=== PATIENT | male | born 1970 | race Two or more races ===

== ENCOUNTER 2022-09-27 02:00 | Emergency (ER) | payer MEDICAID ==
[~2022-09-27] VITALS: Ht 172.7 cm; Wt 71.3 kg
[2022-09-27] MEDS ORDERED: KETOROLAC TROMETH 60MG/2ML VIAL IM ONE (05:30)
[2022-09-27] MEDS ORDERED: BACLOFEN 10 MG TAB PO ONE (06:45)
[2022-09-27] MEDS ORDERED: DexAMETHasone SOD PHOS 10MG/1ML VIAL INJ IM ONE (07:15)
[2022-09-27] MEDS ORDERED: CYCL-611 PO (07:16)
[2022-09-27] MEDS ORDERED: MELO1TAB56 PO (07:16)
[2022-09-27 07:38] VITALS: BP 110/60
== END 2022-09-27 07:41 | disposition home or self-care (01) ==
LOC: ER 02:00
DX: M54.42 Lumbago with sciatica, left side (principal)
CPT/HCPCS: 72131; 74176; 96372; 99285; J1100; J1885

== ENCOUNTER 2024-10-07 18:31 | Emergency (ER) | payer MEDICAID ==
[~2024-10-07] VITALS: Ht 172.7 cm; Wt 71.3 kg
[~2024-10-07 18:31] MED LIST: CYCL-611 PO; MELO15TA29 PO
--- NOTE | 2024-10-07 21:06 | ED.PDOC ---
Back pain HPI HPI Comments Pt presents to ED with c/c of back pain r/t to bilateral legs. 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 Denies numbness, weakness, loss of bowel or bladder control, saddle anesthesia. Chief Complaint: Back Pain Time Seen by MD: 18:43 Primary Care Provider: JESUS ROUSE Reviewed Notes: Nurses Notes, Medications, Allergies Allergies: Coded Allergies: NO KNOWN ALLERGIES (Unverified , 09/27/22) Home Meds Active Scripts Tizanidine Hydrochloride (Tizanidine Hcl) 4 Mg Tab, 4 MG PO BID PRN for 5 Days, #10 TAB Prov:TRUMAN FUENTES AGENT PRODUCER 5//25 Methylprednisolone (Medrol Dosepak) 4 Mg Wei, 4 MG PO UD for 6 Days, #21 TAB UAD Prov:TRUMAN FUENTES AGENT PRODUCER 5/25 Meloxicam (Meloxicam) 15 Mg Tab, 15 MG PO DAILY PRN, #14 TAB Prov:ELISEO WATKINS MD 09/27/22 Cyclobenzaprine HCl (Cyclobenzaprine Hydrochlo) 10 Mg Tab, 10 MG PO Q8HP PRN, #20 TAB Prov:ELISEO WATKINS MD 09/27/22 Information Source: Patient Mode of Arrival: Ambulatory Past Medical History PAST MEDICAL HISTORY: Denies Surgical History: Denies all surgeries Family History Family History: Unknown Social History Smoker: Non-Smoker Alcohol: Denies ETOH Use Drugs: Denies Drug Use Constitutional: denies: chills, diaphoresis, fatigue, fever, malaise, sweats, weakness, others EENTM: denies: blurred vision, double vision, ear bleeding, ear discharge, ear drainage, ear pain, ear ringing, eye pain, eye redness, hearing loss, mouth pain, mouth swelling, nasal discharge, nose bleeding, nose congestion, nose pain, photophobia, tearing, throat pain, throat swelling, voice changes, others Respiratory: denies: cough, hemoptysis, orthopnea, SOB at rest, shortness of breath, SOB with excertion, stridor, wheezing, others Cardiovascular: denies: chest pain, dizzy spells, diaphoresis, Dyspnea on exertion, edema, irregular heart beat, left arm pain, lightheadedness, palpitations, PND, syncope, others Gastrointestinal: denies: abdomen distended, abdominal pain, blood streaked bowels, constipated, diarrhea, dysphagia, difficulty swallowing, hematemesis, melena, nausea, poor appetite, poor fluid intake, rectal bleeding, rectal pain, vomiting, others Genitourinary: denies: burning, dysuria, flank pain, frequency, hematuria, in continence, penile discharge, penile sore, pain, testicle pain, testicle swelling, urgency, others Neurological: denies: dizziness, fainting, headache, left sided numbness, left sided weakness, numbness, paresthesia, pre-existing deficit, right sided numbness, right sided weakness, seizure, speech problems, tingling, tremors, weakness, others Musculoskeletal: reports: back pain; denies: gout, joint pain, joint swelling, muscle pain, muscle stiffness, neck pain, others Integumetry: denies: bruises, change in color, change in hair/nails, dryness, laceration, lesions, lumps, rash, wounds, others Allergic/Immunocompromised: denies: Difficulty Healing, Frequent Infections, Hives, Itching, others Hematologic/Lymphatic: denies: anemia, blood clots, easy bleeding, easy bruising, swollen glands, others Endocrine: denies: excessive hunger, excessive sweating, excessive thirst, excessive urination, flushing, intolerance to cold, intolerance to heat, unexplained weight gain, unexplained weight loss, others Psychiatric: denies: anxiety, bipolar disorder, depression, hopeless, panic disorder, schizophrenia, sleepless, suicidal, others Physical Exam General Appearance: No Apparent Distress, Normal HEENT: Normal ENT Inspection, Pharynx Normal, TMs Normal Neck: Full Range of Motion, Non-Tender, Normal, Normal Inspection Respiratory: Chest Non-Tender, Lungs Clear, No Accessory Muscle Use, No Respiratory Distress, Normal Breath Sounds Cardiovascular: No Edema, No JVD, No Murmur, No Gallop, Normal Peripheral Pulses, Regular Rate/Rhythm Breast Exam: Deferred Gastrointestinal: No Organomegaly, Non Tender, No Pulsatile Mass, Normal Bowel Sounds, Soft Genitalia: Deferred Pelvic: Deferred Rectal: Deferred Extremities: No calf tenderness, Normal capillary refill, Normal inspection, Normal range of motion, Non-tender, No pedal edema Musculoskeletal : Location: Bilateral Extremity Location: Back (Bilateral lower back musculature tenderness on pa lpation no noted crepitus or step-offs along lumbar spine negative straight leg raise bilateral strength sensory motion intact positive pedal pulses) Apperance: Normal Neurologic: Alert, hand edger II-XII nml as Tested, No Motor Deficits, Normal Affect, Normal Mood, No Sensory Deficits Cerebellar Function: Normal Reflexes: Normal Skin: Dry, Normal Color, Warm Lymphatic: No Adenopathy Was a procedure done? Was a procedure done?: No Back Pain Differential Dx Differential Diagnosis: Fracture, Musculoskeletal Pain X-Ray, Labs, Meds, VS Vital Signs Date Time Temp Pulse Resp B/P (MAP) Pulse Ox O2 Delivery O2 Flow Rate FiO2 10/07/24 21:19 54 19 97 Room Air 10/07/24 21:19 98.0 54 19 109/65 (80) 97 98.0 10/07/24 18:45 99.6 61 16 108/65 (79) 95 99.6 Current Medications Medications (Trade) Dose Ordered Sig/Jean Route Start Time Stop Time Status Last Admin Ketorolac Tromethamine (Toradol Injection) 60 mg ONCE ONCE IM 10/07/24 21:15 10/07/24 21:16 DC 10/07/24 21:41 Dexamethasone Sodium Phosphate (Decadron Injection) 10 mg ONCE ONCE IM 10/07/24 21:15 10/07/24 21:16 DC 10/07/24 21:41 X-Ray, Labs, Meds, VS Comment CT lumbar spine shows no acute fractures, subluxations, or osseous lesions. Patient given Toradol 60 mg IM and Decadron 10 mg IM reports improvement in pain and function requesting discharge at this time this is likely a muscle strain. Script muscle relaxer and Medrol Dosepak. Advised to take medications as prescribed side effects discussed. Follow up with his PCP in 2 days as necessary consider further imaging such as MRI or physical therapy if symptoms persist. ER Return precautions given patient indicates understanding agrees with discharge plan of care. Time of 1ST Reevaluation: 20:15 Reevaluation 1ST: Unchanged Time of 2ND Reevaluation: 22:06 Reevaluation 2ND: Improved Patient Education/Counseling: Diagnosis, Treatment, Prognosis, Need For Follow Up Family Education/Counseling: Prognosis, Need For Follow Up Departure 1 Departure Time of Disposition: 22:07 Impression: Primary Impression: Lumbar sprain Qualified Codes: S33.5XXA - Sprain of ligaments of lumbar spine, initial encounter Disposition: HOME / SELF CARE / HOMELESS Condition: Stable e-Prescriptions Tizanidine Hydrochloride (Tizanidine Hcl) 4 Mg Tab 4 MG PO BID PRN for 5 Days, #10 TAB Prov: TRUMAN FUENTES 10/07/24 Methylprednisolone (Medrol Dosepak) 4 Mg Wei 4 MG PO UD for 6 Days, #21 TAB UAD Prov: TRUMAN FUENTES 10/07/24 Discharged With: Relative (Sibling) Critical Care Note Critical Care Time?: No Stability Stability form required: No TRUMAN FUENTES October 07, 2024 21:06
[2024-10-07 21:19] VITALS: BP 109/65; PULSE 54; RESP 19; TEMP 98; O2SAT 97
[2024-10-07] MEDS: KETOROLAC TROMETH 60MG/2ML VIAL IM ONE (21:41)
[2024-10-07] MEDS: DexAMETHasone SOD PHOS 10MG/1ML VIAL INJ IM ONE (21:41)
--- NOTE | 2024-10-07 22:00 | DVH ---
CT LS SPINE WO CONTRAST INDICATION: Injury/bilateral radiculopathy : 54 old Male Injury/bilateral radiculopathy EXAM DATE: 10/07/2024 09:23 PM COMPARISON: None RADIATION DOSE: CTDIvol: 11.59 mGy, DLP: 496.55 mGy*cm PROCEDURE: Utilizing the CT scanner, contiguous axial scans were obtained through the lumbar spine. C oronal and sagittal reformatted images were then generated. All CT scans at this medical facility are performed using dose modulation techniques as appropriate t o a performed exam including the following: Automated exposure control was utilized; adjustment of th e MA and/or KV according to patient size; and use of iterative reconstruction technique. FINDINGS: Vertebral body heights are well preserved bones are mildly osteopenic. Intervertebral disc spaces are well preserved. Lordotic curvature is reduced it is 37 degrees low normal is 40 degrees. Neural fora luanne appear to be unremarkable. IMPRESSION: 1. There is flattening of the normal lordotic curvature otherwise unremarkable study. No trauma relat ed changes appreciated
[2024-10-07] MEDS ORDERED: TIZA-142 PO (22:08)
[2024-10-07] MEDS ORDERED: METH4PAK PO (22:08)
== END 2024-10-07 22:26 | disposition home or self-care (01) ==
LOC: ER 18:31
DX: S33.5XXA Sprain of ligaments of lumbar spine, initial encounter (principal); Z79.899 Other long term (current) drug therapy; X50.0XXA Overexertion from strenuous movement or load, initial encounter; Y93.89 Activity, other specified; Y92.89 Other specified places as the place of occurrence of the external cause; Y99.8 Other external cause status
CPT/HCPCS: 72131; 96372; 99285; J1100; J1885